=== PATIENT | female | born 1955 | race Caucasian/White ===

== ENCOUNTER 2018-12-13 15:50 | Outpatient (REF) | payer MEDICAID, SELFPAY ==
[2018-12-13 19:00] LABS: HCT 44.2 % (36.0-46.0); Mean Corp. HGB Concentration 33.9 g/dL (32.0-36.0); Mean Corpuscular Hemoglobin 31.4 pg (27.0-33.0); Mean Corpuscular Volume 92.5 fL (80-95); Mean Platelet Volume 11.5 fL (8.0-11.0); Platelet Count 237 x1000/uL (130-400); RBC 4.78 m/cumm (4.00-5.20); RBC Distribution Width 12.7 % (11.7-14.6); White Blood Cell Count 9.58 k/cumm (4.4-10.8)
[2018-12-13 19:02] LABS: Uric Acid 7.1 mg/dL (2.6-6.0)
== END 2018-12-13 16:10 ==
LOC: NCHCN 15:50
PROVIDERS: PCP Nurse Practitioner Family; Visit Provider Nurse Practitioner Family
DX: M10.072 Idiopathic gout, left ankle and foot (principal); M79.675 Pain in left toe(s)
CPT/HCPCS: 85027; 84550

== ENCOUNTER 2020-10-01 18:38 | Outpatient (REF) | payer MEDICARE, MEDICAID, SELFPAY ==
[2020-10-01 19:33] LABS: Anion Gap 6.9 mmol/L (3-11); BUN 21 mg/dL (7-18); CO2 31.1 mmol/L (21.0-32.0); CREATININE 0.8 mg/dL (0.55-1.02); Calcium 9.5 mg/dL (8.5-10.1); Calculated LDL 131 mg/dL (<100); Chloride 105 mmol/L (98-107); Cholesterol 231 mg/dL (<200); Glucose 110 mg/dL (74-106); HDL Cholesterol 32 mg/dL (40-60); Potassium 4.1 mmol/L (3.5-5.1); Sodium 143 mmol/L (136-145); Triglyceride 342 mg/dL (<150)
== END 2020-10-01 18:39 | disposition home or self-care (01) ==
LOC: NCHCN 18:38
PROVIDERS: PCP Nurse Practitioner Family; Visit Provider Nurse Practitioner Family
DX: R03.0 Elevated blood-pressure reading, without diagnosis of hypertension (principal); Z13.220 Encounter for screening for lipoid disorders
CPT/HCPCS: 80048; 80061

== ENCOUNTER 2020-12-28 08:23 | Day surgery (SDC) | payer MEDICARE, MEDICAID, SELFPAY ==
[2020-12-28 08:35] VITALS: BP 127/67; PULSE 82; RESP 16; TEMP 36.3; O2SAT 94
[2020-12-28] MEDS: Tropicam./Phenyleph. (1/2.5%) 5 ML BTL OS ×3 (09:03→09:14)
--- NOTE | 2020-12-28 09:13 | W.ANESPRE ---
General Info Date of Service Date Performed: 12/28/20 Height: 5 ft 6 in Weight: 84.2 kg Body Mass Index (BMI): 29.9 Surgical Procedure: Operation Date: 12/28/20 11:40 Proposed Procedures Side Surgeon p Cataract Extraction with IOL Implant Left Thad Galarza MD Meds Allergies and Home Medications Allergies Allergy/AdvReac Type Severity Reaction Status Date / Time Bleach (Sodium Hypochlorite) Allergy Severe Hives Unverified 12/28/20 08:56 latex Allergy Intermediate Skin Rash Unverified 12/28/20 08:56 Tide Detergent Allergy Severe Hives Uncoded 12/28/20 08:56 Home Medication Medication Instructions Recorded atorvastatin 10 mg PO HS 12/26/20 [id number] 1 tab PO BID 12/26/20 [Caltrate 600-D Plus Minerals] multivitamin with minerals 1 tab PO DAILY 12/26/20 naproxen 500 mg PO BID PRN 12/26/20 Current Visit Medications: Current Medications Generic Name Dose Route Start Last Admin Trade Name Freq PRN Reason Stop Dose Admin Acetaminophen 1,000 mg 12/28/20 06:00 Acetaminophen 500 Mg Tab PO Q4H PRN PRN Miscellaneous Medication 0 ml 12/28/20 06:00 Prednisolone 1%, Moxifloxacin 0.5%, Nepafenac 0.1% 5ml Btl OS DIRECTED KJ Miscellaneous Medication 0 ml 12/28/20 06:00 12/28/20 09:03 Tropicam./Phenyleph. (1/2.5%) 5 Ml Btl OS 1 drp DIRECTED KJ Administration Tetracaine HCl 0 ml 12/28/20 06:00 Tetracaine 0.5% 4 Ml Btl OS DIRECTED KJ PFSH Active Problems Active Problems: Problem Status Onset Code Nuclear sclerotic cataract of left eye H25.12 Posterior subcapsular age-related cataract of left eye H25.042 Medical History Medical History Bilateral cataracts Chronic fatigue High cholesterol Hip joint pain Surgical History Surgical History History of cholecystectomy History of partial hysterectomy Tobacco Smoking/Tobacco Use Status: Current every day Tobacco Type: cigarettes Alcohol Alcohol Intake: never Substance Use Substance use: Never Substance use type: does not use Vital Signs and Lab Results Vital Signs Most Recent Vital Signs in EMR: Most Recent Vital Signs Temp Pulse Resp BP Pulse Ox 36.3 C L 82 16 127/67 94 12/28/20 08:35 12/28/20 08:35 12/28/20 08:35 12/28/20 08:35 12/28/20 08:35 Lab Results Blood Type / Crossmatch: No Data to Display Complete Blood Count: No Data to Display Complete Metabolic Panel: No Data to Display Liver Function Panel: No Data to Display Coagulation Panel: No Data to Display Cardiac Panel: No Data to Display Arterial Blood Gas: No Data to Display Venous Blood Gas: No Data to Display Pancreas Panel: No Data to Display Thyroid Panel: No Data to Display Infectious Disease: No Data to Display Blood Cultures: No Data to Display Toxicology Panel: No Data to Display Anesthesia Assessment and Plan Anesthesia History Personal History: No History of Anesthesia Complications Family History: No Family History of Anesthesia Complications Exercise Tolerance Exercise Tolerance: Metabolic Equivalents>4 Pertinent Negatives Pertinent Negatives: No Symptoms of GERD, No Major Cardiovascular Symptoms or Complaints, No Major Pulmonary Symptoms or Complaints and No History of CVA/TIA Cardiac & Pulmonary Exam Cardiac Exam: Normal S1/S2 Heart Sounds Pulmonary Exam: Clear Bilateral Breath Sounds Airway Exam Known Difficult Airway: No Mallampati Class: 2 Mouth Opening: Normal (> 3cm) Thyromental Distance: Greater than 3 cm Neck Range of Motion: Full ROM Neck Circumference: Normal Teeth Condition: Normal Dentition ASA Classification ASA Score: ASA 2 Emergency Case?: No NPO Status NPO Status: NPO Clears >2 hours, Solids >8 hours Anesthesia Plan Resuscitation Status: Full Code Anesthesia Technique: MAC Anesthesia Airway Planned: Natural Airway Monitors Used: Standard Monitors
[2020-12-28 09:15] VITALS: BMI 29.9
--- NOTE | 2020-12-28 10:08 | W.ANESPOSTOP ---
Postoperative Evaluation Date, Time and Location Date Performed: 12/28/20 Time Performed: 10:08 Patient Location: Day Surgery Unit Vital Signs Most Recent Imported Vital Signs: Most Recent Vital Signs Temp Pulse Resp BP Pulse Ox 36.3 C L 82 16 127/67 94 12/28/20 08:35 12/28/20 08:35 12/28/20 08:35 12/28/20 08:35 12/28/20 08:35 Most Recent Manually Entered Vital Signs: Adult Blood Pressure: 188/68 Heart Rate: 51 Respirations: 16 Oxygen Saturation (%): 99 Temperature (C): 36.4 C Pain Score (0-10 Scale): 0 Assessment Mental Status: Awake (Alert & Oriented to Patient Baseline) Airway and Respiratory Function: Patent airway with normal (patient baseline) respiratory exam Cardiovascular Function: Hemodynamically Stable Hydration Status: Adequately Hydrated Nausea & Vomiting: No Nausea or Vomiting Pain: Pt. Denies Any Pain Peripheral Nerve Block: Patient did not receive a nerve block
[2020-12-28 10:09] VITALS: BP 188/68; PULSE 51; RESP 16; TEMPC 36.4; O2SAT 99
[2020-12-28] MEDS: Tetracaine 0.5% 4 ML BTL OS (10:17)
[2020-12-28] MEDS: Balanced Salt Soln.-PLUS 500 ML BAG (10:19)
[2020-12-28] MEDS: Duovisc Viscoelastic System EACH 1 EACH (10:20)
[2020-12-28] MEDS: Lidocaine 1% Pres-Free 5 ML VIAL (10:20)
[2020-12-28] MEDS: Lidocaine 2% Jelly 6 ML SYR (10:21)
[2020-12-28] MEDS: Povidone-Iodine Ophth 30 ML BTL (10:21)
[2020-12-28 10:46] VITALS: BP 144/84; PULSE 97; RESP 14; TEMP 36.3; O2SAT 96
--- NOTE | 2020-12-28 10:48 | W.PM.DSUDISC ---
Discharge Plan Disposition Patient Disposition: HOME Condition: Good Discharge Details Attending Provider: Thad Galarza Primary Care Provider: Pratima Miller Home Meds and New Rx's Prescriptions: No Action atorvastatin 10 mg tablet 10 mg PO HS RF: 0 multivitamin with minerals Tablet 1 tab PO DAILY RF: 0 naproxen 500 mg tablet 500 mg PO BID PRNRF: 0 Caltrate 600-D Plus Minerals 600 mg calcium- 800 unit-50 mg Tablet 1 tab PO BID RF: 0 Discharge Instructions Stand Alone Forms: Post-op Topical Cataract, Nargis Ganey ([facility]U) Discharge Orders Discharge Orders: Discharge Order (Routine); Ordered 12/28/20 Ordered By: Thad Galarza DS: Diagnosis Discharge Diagnosis (1) Nuclear sclerotic cataract of left eye: Status: Resolved (2) Posterior subcapsular age-related cataract of left eye: Status: Resolved
--- NOTE | 2020-12-28 10:49 | W.ANESPOSTOP ---
Postoperative Evaluation Date, Time and Location Date Performed: 12/28/20 Time Performed: 10:49 Patient Location: Day Surgery Unit Vital Signs Most Recent Imported Vital Signs: Most Recent Vital Signs Temp Pulse Resp BP Pulse Ox 36.3 C L 82 16 127/67 94 12/28/20 08:35 12/28/20 08:35 12/28/20 08:35 12/28/20 08:35 12/28/20 08:35 Most Recent Vital Signs Temp Pulse Resp BP Pulse Ox 36.3 C L 82 16 127/67 94 12/28/20 08:35 12/28/20 08:35 12/28/20 08:35 12/28/20 08:35 12/28/20 08:35 Most Recent Manually Entered Vital Signs: Adult Blood Pressure: 144/84 Heart Rate: 100 Respirations: 16 Oxygen Saturation (%): 99 Temperature (C): 36.4 C Pain Score (0-10 Scale): 0 Assessment Mental Status: Awake (Alert & Oriented to Patient Baseline) Airway and Respiratory Function: Patent airway with normal (patient baseline) respiratory exam Cardiovascular Function: Hemodynamically Stable Hydration Status: Adequately Hydrated Nausea & Vomiting: No Nausea or Vomiting Pain: Pt. Denies Any Pain Peripheral Nerve Block: Patient did not receive a nerve block
--- NOTE | 2020-12-28 10:49 | W.PM.OP ---
Date of service: 12/28/20 Time of Service: 10:50 Operative Note Operative Note DATE OF PROCEDURE: 12/28/20 PRE-OP DIAGNOSIS: Nuclear/posterior subcapsular cataract, left eye POST-OP DIAGNOSIS: same PROCEDURE: Cataract extraction using phacoemulsification with intraocular lens implant, left eye SURGEON: Thad Galarza ANESTHESIA TYPE: Local By Surgeon and MAC Refer to Anesthesia Record PATHOLOGY: none sent COMPLICATIONS: None Patient was transported to: same day Patient's condition: stable Implants: Sean and Sean / [employer] Tecnis [id number] Indications: Progressive decreased vision due to cataract, left eye, with poor red reflex Procedure Description: CATARACT SURGERY OPERATIVE REPORT PREOPERATIVE DIAGNOSIS: 1. Nuclear/posterior subcapsular cataract, left eye POSTOPERATIVE DIAGNOSIS: Same OPERATION: 1. Cataract extraction using phacoemulsification with posterior chamber intraocular lens implant, left eye. IOL: IOL [employer]/Model: Sean & Sean / FIORDALIZA Tecnis [id number] IOL Power: + 11.5 diopters IOL Serial Number: [id number] Optic Diameter: 6.0 mm Haptic/Overall Diameter: 13.0 mm PHACO INFO: Miguel Biodirectionurion Vision System with OZil and Active Fluidics Cumulative Dispersed Energy (CDE): 11.30 seconds SURGEON: Thad Galarza MD, CARLOS ANESTHESIA: Monitored A [facility] (MAC), with local sub-tenon's anesthetic infiltration COMPLICATIONS: None SPECIMENS: None INDICATIONS FOR PROCEDURE: The patient is a 65-year-old lady with history of high myopia who has developed a significant nuclear/posterior subcapsular cataract of the left eye. The option of cataract surgery was offered to the patient and she felt she was symptomatic enough that she wished to proceed. PROCEDURE: The correct surgical eye was identified and marked as the left eye and the pupil was dilated in the preoperative area using mydriatics and cycloplegics. The dilated pupil size was 7.0 mm. Oral sedation was administered in the form of an Imprimis MKO Melt (midazolam 3mg/ketamine 25mg/ondansetron 2mg). The patient was brought to the operating room where cardiopulmonary monitoring was instituted and surgical time-out was performed, confirming the correct operative eye and IOL power. Topical anesthesia was administered and ophthalmic povidone-iodine 5% was instilled into the conjunctival fornices. Lidocaine gel was applied to the cornea and the hosea-ocular area was prepped with Betadine 10% solution and draped in the usual sterile fashion for intraocular surgery, including an aperture drape. A Tegaderm transparent film dressing was cut in half and used to cover the lashes and lid margins. Care was taken to sequester the lashes and lid margins under the Tegaderm dressing. A lid speculum was placed between the lids of the operative eye and the Lexx-Eboni operating microscope was maneuvered into position. Rylan scissors were then used to make a conjunctival buttonhole approximately 6mm posterior to the limbus in the inferonasal quadrant. Blunt dissection was carried out to expose bare sclera, and a blunt-tipped sub-tenon?s anesthesia cannula was introduced and passed posteriorly along the globe where non-preserved plain lidocaine was injected into posterior sub-Tenon?s space. A sideport knife was used to make a paracentesis port superiorly/superiortemporally. Intraocular phenylephrine/lidocaine was injected int the anterior chamber.. Air was then injected into the anterior chamber, followed by Vision Blue, which was painted over the anterior capsule and then irrigated out using BSS. The anterior chamber was filled with viscoelastic. A 2.4mm keratome knife was used to create a half-thickness groove at the limbus and then to construct a three-plane near-clear corneal tunnel extending 2.0mm into clear cornea at the 3:00 position. A flap was raised on the anterior capsule and capsulorhexis forceps were used to complete a continuous curvilinear capsulorhexis of 5.5 mm. The anterior chamber was noted to be quite deep. Balanced salt solution was then used to perform cortical cleaving hydrodissection and nuclear hydrodelineation until the lens could be freely rotated within the capsular bag. The lens nucleus was then disassembled and removed within the capsular bag and iris plane using phacoemulsification. Residual cortical material was removed using the 45-degree angled silicone I/A tip with 0.3mm port. The posterior capsule was carefully polished to remove as much residual lens epithelial cells as safely possible. The capsular bag was then inflated and the anterior chamber deepened with viscoelastic. The lens implant described above was inserted into the capsular bag using the FIORDALIZA [place] Injector. A Kuglen hook was used to dial the IOL into position. Residual viscoelastic was then removed first from posterior to the IOL, then from the anterior chamber using the I/A handpiece. The lens implant was noted to center nicely within the capsular bag. The incisions were stromally hydrated, and the anterior chamber was reformed using BSS. Then 0.5cc of moxifloxacin 1.0mg/ml were injected into the capsular bag and anterior chamber. The incisions were checked with a Weck spear and found to be secure. Several drops of ophthalmic povidone-iodine 5% were then applied to the eye followed by two drops of Imprimis combination prednisolone/moxifloxacin/nepafenac solution. The drapes were removed and a clear plastic protective eye shield was placed over the eye. The patient was then returned to Same Day Surgery in stable condition.
[2020-12-28 10:50] VITALS: BP 144/84; PULSE 100; RESP 16; TEMPC 36.4; O2SAT 99
[2020-12-28 11:17] VITALS: BP 141/83; PULSE 97; RESP 16; TEMP 36.4; O2SAT 95
== END 2020-12-28 11:26 | disposition home or self-care (01) ==
PROVIDERS: PCP Nurse Practitioner Family; Visit Provider Ophthalmology
PROC: (CPT 66984; principal; 2020-12-28 11:30)
DX: H25.042 Posterior subcapsular polar age-related cataract, left eye (principal); E78.00 Pure hypercholesterolemia, unspecified
CPT/HCPCS: 66984; V2632

== ENCOUNTER 2021-01-11 09:34 | Day surgery (SDC) | payer MEDICARE, MEDICAID, SELFPAY ==
[2021-01-11 10:01] VITALS: BP 148/82; PULSE 91; RESP 16; TEMP 36.3; O2SAT 96
[2021-01-11] MEDS: Tropicam./Phenyleph. (1/2.5%) 5 ML BTL OD ×3 (10:07→10:23)
[2021-01-11 10:55] VITALS: BMI 29.9
--- NOTE | 2021-01-11 10:55 | ANES.PREOP_ITS ---
General Info Date of Service Date Performed: 01/11/21 Height: 5 ft 6 in Weight: 84.2 kg Body Mass Index (BMI): 29.9 Surgical Procedure: Operation Date: 01/11/21 12:40 Proposed Procedures Side Surgeon p Cataract Extraction with IOL Implant Right Thad Galarza MD Meds Allergies and Home Medications Allergies Allergy/AdvReac Type Severity Reaction Status Date / Time Bleach (Sodium Hypochlorite) Allergy Severe Hives Unverified 01/11/21 10:14 latex Allergy Intermediate Skin Rash Unverified 01/11/21 10:14 Tide Detergent Allergy Severe Hives Uncoded 01/11/21 10:14 Home Medication Medication Instructions Recorded atorvastatin 10 mg PO HS 12/26/20 [id number] 1 tab PO BID 12/26/20 [Caltrate 600-D Plus Minerals] multivitamin with minerals 1 tab PO DAILY 12/26/20 naproxen 500 mg PO BID PRN 12/26/20 Current Visit Medications: Current Medications Generic Name Dose Route Start Last Admin Trade Name Freq PRN Reason Stop Dose Admin Acetaminophen 1,000 mg 01/11/21 06:00 Acetaminophen 500 Mg Tab PO Q4H PRN PRN Miscellaneous Medication 0 ml 01/11/21 06:00 Prednisolone 1%, Moxifloxacin 0.5%, Nepafenac 0.1% 5ml Btl OD DIRECTED [facility] Miscellaneous Medication 0 ml 01/11/21 06:00 01/11/21 10:23 Tropicam./Phenyleph. (1/2.5%) 5 Ml Btl OD 1 drp DIRECTED KJ Administration Tetracaine HCl 0 ml 01/11/21 06:00 Tetracaine 0.5% 4 Ml Btl OD DIRECTED KJ PFSH Active Problems Active Problems: Problem Status Onset Code Nuclear sclerotic cataract of left eye H25.12 Posterior subcapsular age-related cataract of left eye H25.042 Medical History Medical History Bilateral cataracts Chronic fatigue High cholesterol Hip joint pain Surgical History Surgical History (Updated 01/11/21 @ 10:13 by Kimberly Alvarez) History of cholecystectomy History of partial hysterectomy Hx of cataract surgery Hx of tonsillectomy Tobacco Smoking/Tobacco Use Status: Current every day Tobacco Type: cigarettes Alcohol Alcohol Intake: never Substance Use Substance use: Never Substance use type: does not use Vital Signs and Lab Results Vital Signs Most Recent Vital Signs in EMR: Most Recent Vital Signs Temp Pulse Resp BP Pulse Ox 36.3 C L 91 H 16 148/82 H 96 01/11/21 10:01 01/11/21 10:01 01/11/21 10:01 01/11/21 10:01 01/11/21 10:01 Lab Results Blood Type / Crossmatch: No Data to Display Complete Blood Count: No Data to Display Complete Metabolic Panel: No Data to Display Liver Function Panel: No Data to Display Coagulation Panel: No Data to Display Cardiac Panel: No Data to Display Arterial Blood Gas: No Data to Display Venous Blood Gas: No Data to Display Pancreas Panel: No Data to Display Thyroid Panel: No Data to Display Infectious Disease: No Data to Display Blood Cultures: No Data to Display Toxicology Panel: No Data to Display Anesthesia Assessment and Plan Anesthesia History Personal History: No History of Anesthesia Complications Family History: No Family History of Anesthesia Complications Exercise Tolerance Exercise Tolerance: Metabolic Equivalents>4 Pertinent Negatives Pertinent Negatives: No Symptoms of GERD, No Major Cardiovascular Symptoms or Complaints, No Major Pulmonary Symptoms or Complaints and No History of CVA/TIA Cardiac & Pulmonary Exam Cardiac Exam: Normal S1/S2 Heart Sounds Pulmonary Exam: Clear Bilateral Breath Sounds Airway Exam Known Difficult Airway: No Mallampati Class: 2 Mouth Opening: Normal (> 3cm) Thyromental Distance: Greater than 3 cm Neck Range of Motion: Full ROM Neck Circumference: Normal Teeth Condition: Normal Dentition Airway Comments: Missing teeth ASA Classification ASA Score: ASA 2 Emergency Case?: No NPO Status NPO Status: NPO Clears >2 hours, Solids >8 hours Anesthesia Plan Resuscitation Status: Full Code Anesthesia Technique: MAC Anesthesia Airway Planned: Natural Airway Monitors Used: Standard Monitors
[2021-01-11] MEDS: Tetracaine 0.5% 4 ML BTL OD (11:14)
[2021-01-11] MEDS: Balanced Salt Soln.-PLUS 500 ML BAG (11:15)
[2021-01-11] MEDS: Duovisc Viscoelastic System EACH 1 EACH (11:15)
[2021-01-11] MEDS: Lidocaine 1% Pres-Free 5 ML VIAL (11:16)
[2021-01-11] MEDS: Lidocaine 2% Jelly 6 ML SYR (11:16)
[2021-01-11] MEDS: Povidone-Iodine Ophth 30 ML BTL (11:16)
[2021-01-11 11:37] VITALS: BP 135/75; PULSE 95; RESP 16; TEMP 36.4; O2SAT 92
--- NOTE | 2021-01-11 11:37 | W.PM.DSUDISC ---
Discharge Plan Disposition Patient Disposition: HOME Condition: Good Discharge Details Attending Provider: Thad Galarza Primary Care Provider: Pratima Miller Home Meds and New Rx's Prescriptions: No Action atorvastatin 10 mg tablet 10 mg PO HS RF: 0 multivitamin with minerals Tablet 1 tab PO DAILY RF: 0 naproxen 500 mg tablet 500 mg PO BID PRNRF: 0 Caltrate 600-D Plus Minerals 600 mg calcium- 800 unit-50 mg Tablet 1 tab PO BID RF: 0 Discharge Instructions Stand Alone Forms: Post-op Topical Cataract, Nargis Muir ([facility]) Discharge Orders Discharge Orders: Discharge Order (Routine); Ordered 01/11/21 Ordered By: Thad Galarza DS: Diagnosis Discharge Diagnosis (1) Nuclear sclerotic cataract of right eye: Status: Resolved
--- NOTE | 2021-01-11 11:37 | W.ANESPOSTOP ---
Postoperative Evaluation Date, Time and Location Date Performed: 01/11/21 Time Performed: 11:37 Patient Location: Day Surgery Unit Vital Signs Most Recent Imported Vital Signs: Most Recent Vital Signs Temp Pulse Resp BP Pulse Ox 36.3 C L 91 H 16 148/82 H 96 01/11/21 10:01 01/11/21 10:01/11/21 10:01/11/21 10:01 01/11/21 10:01 Most Recent Manually Entered Vital Signs: Adult Blood Pressure: 135/75 Heart Rate: 95 Respirations: 10 Oxygen Saturation (%): 99 Temperature (C): 36.4 C Pain Score (0-10 Scale): 0 Pain Score Most Recent Pain Score: Most Recent Pain Score Pain Level 0 01/11/21 10:01 Assessment Mental Status: Awake (Alert & Oriented to Patient Baseline) Airway and Respiratory Function: Patent airway with normal (patient baseline) respiratory exam Cardiovascular Function: Hemodynamically Stable Hydration Status: Adequately Hydrated Nausea & Vomiting: No Nausea or Vomiting Pain: Pt. Denies Any Pain Peripheral Nerve Block: Patient did not receive a nerve block
--- NOTE | 2021-01-11 11:38 | ROE_ITS ---
Date of service: 01/11/21 Time of Service: 11:38 Operative Note Operative Note DATE OF PROCEDURE: 11/26/20 PRE-OP DIAGNOSIS: Nuclear cataract, right eye, symptomatic POST-OP DIAGNOSIS: same PROCEDURE: Cataract extraction using phacoemulsification with intraocular lens implant, right eye SURGEON: Thad Galarza ANESTHESIA TYPE: Local By Surgeon and MAC Refer to Anesthesia Record ESTIMATED BLOOD LOSS: 0 PATHOLOGY: none sent COMPLICATIONS: None Patient was transported to: same day Patient's condition: stable Implants: Sean & Sean/FIORDALIZA Tecnis [id number] Indications: Progressive visual loss due to cataract, right eye Procedure Description: CATARACT SURGERY OPERATIVE REPORT PREOPERATIVE DIAGNOSIS: 1. Nuclear cataract, right eye, symptomatic POSTOPERATIVE DIAGNOSIS: Same OPERATION: 1. Cataract extraction using phacoemulsification with posterior chamber intraocular lens implant, right eye. IOL: IOL Baster Hand/Model: Sean & Sean / FIORDALIZA Tecnis [id number] IOL Power: + 12.5 diopters IOL Serial Number: [id number] Optic Diameter: 6.0mm Haptic/Overall Diameter: 13.0mm PHACO INFO: Miguel HowAboutWeurion Vision System with OZil and Active Fluidics Cumulative Dispersed Energy (CDE): 7.32 seconds SURGEON: Thad Galarza MD, CARLOS ANESTHESIA: Monitored An[facility] Care (MAC), with local sub-tenon's anesthetic infiltration COMPLICATIONS: None SPECIMENS: None INDICATIONS FOR PROCEDURE: The patient is a 65-year-old lady with history of diminished visual acuity in both eyes secondary to development of bilateral nuclear cataract. The option of cataract surgery was offered to the patient and she wished to proceed. She has already undergone cataract surgery in the left eye is doing well postoperatively. She now presents for surgery of the right eye. PROCEDURE: The correct surgical eye was identified and marked as the right eye and the pupil was dilated in the preoperative area using mydriatics and cycloplegics. The dilated pupil size was 7.0 mm. Oral sedation was administered in the form of an Imprimis MKO Melt (midazolam 3mg/ketamine 25mg/ondansetron 2mg). The patient was brought to the operating room where cardiopulmonary monitoring was instituted and surgical time-out was performed, confirming the co rrect operative eye and IOL power. Topical anesthesia was administered and ophthalmic povidone-iodine 5% was instilled into the conjunctival fornices. Lidocaine gel was applied to the cornea and the hosea-ocular area was prepped with Betadine 10% solution and draped in the usual sterile fashion for intraocular surgery, including an aperture drape. A Tegaderm transparent film dressing was cut in half and used to cover the lashes and lid margins. Care was taken to sequester the lashes and lid margins under the Tegaderm dressing. A lid speculum was placed between the lids of the operative eye and the Lexx-Eboni operating microscope was maneuvered into position. Rylan scissors were then used to make a conjunctival buttonhole approximately 6mm posterior to the limbus in the inferonasal quadrant. Blunt dissection was carried out to expose bare sclera, and a blunt-tipped sub-tenon?s anesthesia cannula was introduced and passed posteriorly along the globe where non- preserved plain lidocaine was injected into posterior sub-Tenon?s space. A sideport knife was used to make a paracentesis port inferotemporally. Intraocular phenylephrine/lidocaine was injected into the anterior chamber. The anterior chamber was filled with viscoelastic. A 2.4mm keratome knife was used to create a half-thickness groove at the limbus and then to construct a three- plane near-clear corneal tunnel extending 2.0mm into clear cornea superiortemporally. A flap was raised on the anterior capsule and capsulorhexis forceps were used to complete a continuous curvilinear capsulorhexis of 4.8 mm. The anterior chamber was noted to be quite deep. Balanced salt solution was then used to perform cortical cleaving hydrodissection and nuclear hydrodelineation until the lens could be freely rotated within the capsular bag. The lens nucleus was then disassembled and removed within the capsular bag and iris plane using phacoemulsification. Residual cortical material was removed using the I/A handpiece. The posterior capsule was carefully polished to remove as much residual lens epithelial cells as safely possible. The capsular bag was then inflated and the anterior chamber deepened with viscoelastic. The lens implant described above was inserted into the capsular bag using the FIORDALIZA [place] Injector. A Kuglen hook was used to dial the IOL into position. Residual viscoelastic was then removed first from posterior to the IOL, then from the anterior chamber using the I/A handpiece. The lens implant was noted to center nicely within the capsular bag. The incisions were stromally hydrated, and the anterior chamber was reformed using BSS. Then 0.5cc of moxifloxacin 1.0mg/ml were injected into the capsular bag and anterior chamber. The incisions were checked with a Weck spear and found to be secure. Several drops of ophthalmic povidone-iodine 5% were then applied to the eye followed by two drops of Imprimis combination prednisolone/moxifloxacin/nepafenac solution. The drapes were removed and a clear plastic protective eye shield was placed over the eye. The patient was then returned to Same Day Surgery in stable condition.
[2021-01-11 11:39] VITALS: BP 135/75; PULSE 95; RESP 10; TEMPC 36.4; O2SAT 99
[2021-01-11 11:55] VITALS: BP 140/84; PULSE 88; RESP 16; TEMP 36.4; O2SAT 94
== END 2021-01-11 12:05 | disposition home or self-care (01) ==
PROVIDERS: PCP Nurse Practitioner Family; Visit Provider Ophthalmology
PROC: (CPT 66984; principal; 2021-01-11 12:30)
DX: H25.11 Age-related nuclear cataract, right eye (principal)
CPT/HCPCS: 66984; V2632

== ENCOUNTER 2021-05-13 15:55 | Outpatient (REF) | payer MEDICARE, MEDICAID, SELFPAY | END 2021-05-13 15:56 | disposition home or self-care (01) | LOC: NCHCN 15:55 | PROVIDERS: PCP Nurse Practitioner Family; Visit Provider Nurse Practitioner Family | DX: L72.9 Follicular cyst of the skin and subcutaneous tissue, unspecified (principal) | CPT/HCPCS: 87070; 87205 ==

== ENCOUNTER 2021-11-20 18:39 | Outpatient (REF) | payer MEDICARE, MEDICAID, SELFPAY ==
[2021-11-20 19:01] LABS: Abs Immature Grans 0.03 10^3/uL (0.0-0.06); Absolute Basophil Count 0.07 10^3/uL (0.0-0.2); Absolute Lymphocyte Count 2.97 10^3/uL (1.2-3.4); Absolute Monocyte Count 0.94 10^3/uL (0.1-0.8); Absolute Neutrophil Count 5.35 10^3/uL (1.2-6.7); Basophils % 0.7; Eosinophils % 2.1; HCT 45.3 % (36.0-46.0); HGB 15.6 g/dL (11.2-15.7); Immature Grans % 0.3; Lymphocytes % 31.1; MCH 31.8 pg (27.0-33.0); MCHC 34.4 % (32.0-36.0); MCV 92 fL (80-95); MPV 11.2 fL (8.0-11.0); Monocytes % 9.8; Platelet Count 225 10^3/uL (130-400); RBC 4.91 10^6/uL (3.93-5.22); RDW 11.8 % (11.7-14.6); WBC 9.56 10^3/uL (4.4-10.8)
[2021-11-20 19:26] LABS: ALT 27 U/L (14-59); AST 23 U/L (15-37); Alkaline Phosphatase 88 U/L (46-116); Anion Gap 11.5 mmol/L (3-11); BUN 26 mg/dL (7-18); Bilirubin, Total 0.4 mg/dL (0.2-1.0); CO2 28.5 mmol/L (21.0-32.0); CREATININE 0.8 mg/dL (0.55-1.02); Calcium 9.3 mg/dL (8.5-10.1); Calculated LDL 90 mg/dL (<100); Chloride 103 mmol/L (98-107); Cholesterol 189 mg/dL (<200); Glucose 85 mg/dL (74-106); HDL Cholesterol 42 mg/dL (40-60); Potassium 4.1 mmol/L (3.5-5.1); Sodium 143 mmol/L (136-145); Total Protein 7.5 g/dL (6.4-8.2); Triglyceride 286 mg/dL (<150)
== END 2021-11-20 18:40 | disposition home or self-care (01) ==
LOC: NCHCN 18:39
PROVIDERS: PCP Nurse Practitioner Family; Visit Provider Nurse Practitioner Family
DX: R53.83 Other fatigue (principal); E78.5 Hyperlipidemia, unspecified
CPT/HCPCS: 80053; 80061; 85025

== ENCOUNTER 2022-01-27 15:39 | Outpatient (CLI) | payer MEDICARE, MEDICAID, SELFPAY ==
--- NOTE | 2022-01-27 14:45 | DI.RAD_ITS ---
Exam(s) XR HIP PELVIS ADULT BL EXAM: XR HIP PELVIS ADULT BL CLINICAL HISTORY: b/l hip pain. TECHNIQUE: 2D digital imaging was performed. COMPARISON: No exams were available for comparison FINDINGS: BONES: No acute fracture is present. No bony destructive lesion is seen. JOINTS: No dislocation present. [id number] bilateral hip joint space narrowing. Moderate aceta bular spurring. SOFT TISSUE: Normal. IMPRESSION: [id number] degenerative changes of both hips. DATA REPOSITORY: RADIATION DOSE DELIVERED:
== END 2022-01-27 15:40 | disposition home or self-care (01) ==
LOC: DIORS 15:39
PROVIDERS: PCP Internal Medicine; Referring Provider Internal Medicine; Visit Provider Physician Assistant
DX: M16.11 Unilateral primary osteoarthritis, right hip; M16.12 Unilateral primary osteoarthritis, left hip
CPT/HCPCS: 73521; 99203

== ENCOUNTER 2022-05-22 16:59 | Outpatient (REF) | payer MEDICARE, MEDICAID, SELFPAY ==
[2022-05-22 19:41] LABS: Anion Gap 6.4 mmol/L (3-11); BUN 28 mg/dL (7-18); CO2 28.6 mmol/L (21.0-32.0); Calcium 9.7 mg/dL (8.5-10.1); Chloride 101 mmol/L (98-107); Estimated GFR 61.36 (mL/min/1.73m2); Glucose 158 mg/dL (74-106); Potassium 4.2 mmol/L (3.5-5.1); Sodium 136 mmol/L (136-145)
== END 2022-05-22 17:00 | disposition home or self-care (01) ==
LOC: NCHCN 16:59
PROVIDERS: PCP Internal Medicine; Visit Provider Nurse Practitioner Family
DX: H35.033 Hypertensive retinopathy, bilateral (principal); R53.83 Other fatigue
CPT/HCPCS: 80048

== ENCOUNTER 2023-01-06 18:53 | Outpatient (REF) | payer MEDICARE, MEDICAID, SELFPAY ==
[2023-01-06 18:51] LABS: HCT 42.5 % (36.0-46.0); HGB 14.5 g/dL (11.2-15.7); MCH 31.3 pg (27.0-33.0); MCHC 34.1 % (32.0-36.0); MCV 92 fL (80-95); MPV 11.4 fL (8.0-11.0); Platelet Count 211 10^3/uL (130-400); RBC 4.64 10^6/uL (3.93-5.22); WBC 8.69 10^3/uL (4.4-10.8)
[2023-01-06 19:15] LABS: Anion Gap 10.7 mmol/L (3-11); BUN 20 mg/dL (7-18); CO2 25.3 mmol/L (21.0-32.0); CREATININE 0.8 mg/dL (0.55-1.02); Calcium 9.5 mg/dL (8.5-10.1); Chloride 103 mmol/L (98-107); Estimated GFR 80.21 (mL/min/1.73m2); Glucose 172 mg/dL (74-106); Sodium 139 mmol/L (136-145)
[2023-01-06 19:29] LABS: Hemoglobin A1C 5.8 % (<5.7)
== END 2023-01-06 18:54 | disposition home or self-care (01) ==
LOC: NCHCN 18:53
PROVIDERS: PCP Nurse Practitioner Family; Visit Provider Nurse Practitioner Family
DX: R53.83 Other fatigue (principal); R73.03 Prediabetes
CPT/HCPCS: 80048; 85027; 83036

== ENCOUNTER 2023-02-03 03:08 | Outpatient (CLI) | payer MEDICARE, MEDICAID, SELFPAY ==
--- NOTE | 2023-02-03 21:32 | PDOC.EEG_ITS ---
Neurology EEG EEG: [facility] Department of Neurology EEG REPORT Date of Recordin02/03/23 Interpreting Physician: Dr. Jes Landaverde PCP/Referring Provider: Ritu Garibay NP Reason for study: Kimberly Julio is a 68 year-old with recent spells of dizziness, nausea, and emesis with ?MELCHOR concerning for seizure. Current Medications: Home Medications Medication Instructions Recorded Confirmed Type atorvastatin 10 mg tablet 10 mg PO HS 12/26/20 01/27/22 History calcium 600 mg-D3 800 unit-mag11 1 tab PO BID 12/26/20 01/27/22 History 50 bk-pfla-ugtape-jessa-s.borat tablet (Caltrate 600-D Plus Minerals) multivitamin with minerals 1 tab PO DAILY 12/26/20 01/27/22 History naproxen 500 mg tablet 500 mg PO BID PRN 12/26/20 01/27/22 History meloxicam 15 mg tablet 15 mg PO DAILY #30 tabs 01/27/22 01/27/22 Rx lisinopril 5 mg tablet 5 mg PO DAILY for blood pressure 06/16/22 History rosuvastatin 5 mg tablet 5 mg PO DAILY 06/16/22 History METHODS: A 21 channel digitized electroencephalogram was performed in the [facility]. The 10/20 international system of electrode placement was used and bipolar and referential electrode montages were recorded. In addition to EEG the patient was monitored for EKG and lateral/vertical eye movements. Activation procedures of photic stimulation and hyperventilation were performed if applicable. Video was used during activation procedures and during events where applicable. The duration of the recording was 30 minutes. DESCRIPTION OF EEG: The patient was noted to be awake only during the recording. During maximal wakefulness a 9-Hz posterior background rhythm was present which was well- modulated, symmetrical, reactive to eye opening, and of moderate voltage. With eye opening the background activity changed to a low voltage mixture of alpha, beta, and occasional theta range frequencies. Faster frequencies were present in the bilateral anterior head regions. There was a normal anterior-posterior voltage gradient. No drowsiness or stage II sleep was recorded. Activating Procedures: Photic stimulation was performed which produced a symmetrical posterior driving response at various flash frequencies. Hyperventilation was performed with moderate effort and produced no physiological slowing of the background. EKG: EKG revealed normal sinus rhythm. INTERPRETATION: This EEG is normal during the awake state as well as during photic stimulation and hyperventilation. PRIOR EEG: none CLINICAL CORRELATION: No focal regions of cerebral dysfunction or epileptiform activity was present. No sleep was recorded during the study which reduces the sensitivity of the exam. If seizure remains a part of the differential, consider a repeat sleep- deprived EEG or overnight ambulatory EEG. Epilepsy remains a clinical diagnosis and a normal EEG does not rule out epilepsy. Clinical correlation is advised. Jes Landaverde MD
== END 2023-02-03 03:09 | disposition home or self-care (01) ==
LOC: RT 03:09
PROVIDERS: PCP Nurse Practitioner Family; Visit Provider Nurse Practitioner Family
DX: R42 Dizziness and giddiness (principal); R56.9 Unspecified convulsions
CPT/HCPCS: 95816

== ENCOUNTER → 2023-02-04 06:58 | Outpatient (BNVA) | payer MEDICARE, MEDICAID, SELFPAY | PROVIDERS: PCP Nurse Practitioner Family; Referring Provider Nurse Practitioner Family; Visit Provider Psychiatry & Neurology Neurology ==

== ENCOUNTER → 2023-03-17 00:11 | Outpatient (CLI) | payer MEDICARE, MEDICAID, SELFPAY ==
--- NOTE | 2023-03-17 | DI.MRI_ITS ---
Exam(s) MR BRAIN WO EXAM: MR BRAIN WO CLINICAL HISTORY: ATYPICAL SEIZURE, R56.9 TECHNIQUE: Multiplanar multisequence MRI of the brain was performed. COMPARISON: No exams were available for comparison FINDINGS: CEREBRAL PARENCHYMA: There is no evidence of intracranial hemorrhage, mass effect, or shift of midline structures. There are no extra-axial fluid collections. Ventricles are not enlarged or shifted. There is no significant focal signal abnormality in the cerebellar hemispheres nor within the staci, m idbrain, and thalami. There are multiple small sub cm foci of FLAIR bright periventricular signal abnormality consistent wi th chronic small vessel disease, not associated with hemorrhage, surrounding edema nor restricted dif fusion. There is also sub cortical signal abnormality in the right parietal lobe exhibiting cortical signal abnormality on FLAIR imaging but without restricted diffusion. SWI: No evidence of hemorrhage PITUITARY GLAND: No mass nor parasellar abnormality. No obvious abnormality in the cavernous sinuses. FLOW VOIDS: In the posterior circulation the left vertebral artery is dominant. Normal flow void not ed in the basilar artery. In the anterior circulation there is attenuated flow void within the intra cavernous right ICA. Inner flow void signal also noted in the ipsilateral right supra clinoid ICA. Flow void seen in both anterior cerebral arteries and both middle cerebral arteries. PARANASAL SINUSES: The visualized paranasal sinuses appear unremarkable. No obvious finding ORBITS: No obvious findings. IMPRESSION: Bilateral periventricular signal abnormality consistent with chronic small vessel disease. No obviou s acute ischemic event (no restricted diffusion). There is significant attenuation of flow void signal in the right internal carotid artery, specifical ly in the cavernous sinus level and ipsilateral supraclinoid ICA. Most probably related to atheroscl erotic disease. If clinically indicated further study with CT angiography of the head and neck or MR angiography can be performed. Left vertebral artery is dominant. DATA REPOSITORY:
== END ==
PROVIDERS: PCP Nurse Practitioner Family; Visit Provider Nurse Practitioner Family
DX: I67.82 Cerebral ischemia (principal)
CPT/HCPCS: 70551

== ENCOUNTER 2023-06-16 19:24 | Outpatient (REF) | payer OTHER, MEDICAID, SELFPAY ==
[2023-06-16 21:09] LABS: Uric Acid 6.1 mg/dL (2.6-6.0)
== END 2023-06-16 19:25 | disposition home or self-care (01) ==
LOC: NCHCN 19:24
PROVIDERS: PCP Nurse Practitioner Family; Visit Provider Nurse Practitioner Family
DX: M79.641 Pain in right hand (principal)
CPT/HCPCS: 84550

== ENCOUNTER 2024-01-12 16:31 | Outpatient (REF) | payer OTHER, MEDICAID, SELFPAY ==
--- OUTSIDE RECORDS SUMMARY | 2024-01-12 16:35 | XMS_ITS | Data Portability ---
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 Plan of Treatment Reminders Order Date Submit Date Provider Last Modified By Organization Details Last Modified Time Details Appointments Annual Wellness Exam 40 2023 01:50P M Not available Not available Not available Follow Up 30 2023 01:30P M Not available Not available Not available Lab uric acid, serum or plasma 2023 024 [email or web address] [facility] (Registration ), [address] [place] [address] [place], [address], 06/23/2023 07:09:53 Referral None recorded. Procedures None recorded. Surgeries None recorded. Imaging LDCT, chest, for lung cancer screening - 6 months follow up [email or web address] [facility], [address], [place], [address], 01/08/2024 09:14:57 Medication Orders cephalexi n 500 mg capsule 2023 024 [email or web address] [facility], [address], [place], [place], [id number], 08/10/2023 14:42:43 cephalexi n 500 mg capsule 2023 024 [facility], [address], [place], [id number], 12/21/2023 16:58:08 Patient TargetsNo targets recorded. Patient Instructions Encounter Date Encounter Id Patient Instructions Last Modified By Organization Details Last Modified Time 04/08/2023 [id number] I will call you the results of your CTA head and neck. Continue current medications. follow up with neurology as planned Follow up July Good luck with smoking cessation Not available 04/08/2023 16:08:52 06/16/2023 [id number] Ok to take loratadine, cetirizine for your runny nose, stay away from pseduophedrine and products that have some other spelling of sudafed because that will increase your blood pressure Elevate your hand as much as possible, if no improvement or feeling worse please let me know Start the antibiotic today Not available 06/16/2023 14:05:01 08/10/2023 [id number] Hold your rosuvastatin for a week to see if your fatigue improves. If it does, please let me know Try to get outside every single day, especially when it is gayla. Walk and you will feel better I ordered a low dose CT scan of your lungs you should be hearing from [facility] to have that scheduled Please work on smoking cessation., Lab work next week Let me know if you need a refill on your meloxicam Not available 08/10/2023 15:19:17 12/21/2023 [id number] Push fluids, isela e it easy. Please let me now if no improvement of feeling worse Not available 12/21/2023 16:56:51 Reason for Referral None Reported. Results Created Date Observation Date Name Description Value Unit Range Abnormal Flag Note LastModifiedBy Organization Detail LastModifiedTime 06/16/19 24 06/16/2023 URIC ACID uric acid 6.1 mg/dL 2.6-6. 0 high Not Available [facility] [address] , [place], [address] 06/16/2023 21:13:08 Result Notes None recorded. Problems Name Problem SNOMED Code Status Onset Date Resolution Date Notes Provider Name and Address Organization Details Recorded Time Nicotine dependen ce 33504598 [facility] 12:[facility] Screenin g for malignan t neoplasm of colon Completed 201705/25/2017 05/22/19 18 - Comments only - Pratima Miller DIRECTOR OF FUNDRAISING - Refuses colonosc opy but she agrees to do IFOB cards. Ordered. Problem Code: Z12.11; Problem Code Type: ICD-10; Not Available [facility] 3 05:17:16 Joint pain 48040681 Active 2017 [facility] 4 12:21:35 Otalgia of left ear 5851262612 Completed 201711/05/2017 10/16/19 18 - Comments only - Pratima Miller DIRECTOR OF FUNDRAISING - Suspect allergie s, no s/s of infectio n today, mild serous fluid. Treat with deconges tant, warm pack if needed. F/U if not improvin g. The patient is in good understa nding and agreemen t with the plan of care. Problem Code: H92.02; Problem Code Type: ICD-10; Not Available [facility] 3 05:17:16 Primary gout 77865295 Completed 201801/12/2024 left great toe Gail Ciluzmak [facility] 4 14:42:40 Pain in right hip joint 25082413907 9102 Active 2019 [facility] 4 12:23:44 Screenin g for malignan t neoplasm of breast Completed 201906/02/2019 [facility] 4 12:24:56 Localize d edema 817434167 Active 2019 Pedal edema [facility] 4 12:22:05 Hyperlip idemia screenin g Completed 202010/08/2020 Problem Code: Z13.220; Problem Code Type: ICD-10; Not Available [facility] 3 05:17:16 Screenin g for malignan t neoplasm of breast Completed 202010/09/2020 [facility] 4 12:24:56 Cataract 870453834 Active 2020 [facility] 4 12:19:36 Pain of left hip joint 55873435013 9100 Active 2020 [facility] 4 12:23:56 Fatigue 19316962 Active 2020 chronic [facility] 4 12:20:35 Follicul ar cysts of skin and subcutan eous tissue 568698257 Active 2021 [facility] 4 12:21:08 [place] - lesion 712967088 Active 2021 Callus, right foot [facility] 4 12:19:52 Hyperlip idemia 85801231 Active 2021 [facility] 4 12:21:25 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 82379046953 9101 Active 2021 Hyperten sive retinopa thy, bilatera l -- per eye exam 12/11/2021 [facility] 4 12:19:21 Atherosc lerosis of coronary artery without angina pectoris 95179329424 4103 Active 2021 CAD, triple vessel -- mild per CT 2 [facility] 4 12:18:24 Disorder of skin and/or subcutan eous tissue 22509296 Active 2022 Skin lesion [facility] 4 12:20:10 Hypergly cemia 19617602 Completed 202202/04/2023 Problem Code: R73.9; Problem Code Type: ICD-10; Not Available [facility] 3 05:17:18 Nausea and vomiting 83035085 Completed 202201/12/2024 Gail Carrillo null, [facility] 4 14:38:29 Dyspnea 980439420 Active 2022 Rosalie Pete null, [facility] 4 12:20:23 Seizure 94207780 Active 2022 Atypical Rosalie [facility] 4 12:25:16 Prediabe grisel 512103687 Active 2022 [facility] 4 12:24:13 Elevated blood-pr essure reading without diagnosi s of hyperten ami 848265039 Completed 201412/17/2022 Problem Code: R03.0; Problem Code Type: ICD-10; Not Available [facility] 3 05:17:19 Body mass index 30+ - obesity 208913139 Completed 201712/17/2022 Problem Code: Z68.32; Problem Code Type: ICD-10; Not Available [facility] 3 05:17:19 Tobacco dependen ce syndrome 88797222 Completed 201402/04/2023 Problem Code: 305.1; Problem Code Type: ICD-9; Not Available [facility] 3 05:17:19 Counseli ng Completed 202012/17/2022 Problem Code: Z71.89; Problem Code Type: ICD-10; Not Available [facility] 3 05:17:19 Hyperten sive disorder 31782149 Completed 201402/04/2023 Not Available [facility] 3 05:17:19 Lung field abnormal 046176183 Active 2022 Lung nodule -- right lower lobe [facility] 4 12:22:35 Atherosc lerosis of artery 611141936 Active 2022 [facility] 4 12:17:44 Pain in right hand 40317334126 9109 Active 2023 [facility] 4 12:23:22 Gout 15508478 Active 2023 [facility] 4 12:21:13 Cough 04068841 Active 2023 LUKASZ LOZOYA [address], [place], [address] , [facility] 4 16:55:44 Problem Notes None recorded. Procedures Surgical History Date Name Laterality Status Provider Name and Address Organization Details Recorded Time 3 Most Recent Mammogram completed Andres Arriaza RN [facility] 01/08/2024 09:21:35 Imaging Results None recorded. Procedure Notes None recorded. Medical Equipment None Reported. Allergies Allergen ID Allergen Name Allergen Category Reaction Reaction Severity Criticality Documentation Date Start Date Code Code System Note Provider Name and Address Organization Details Recorded Time 43968 sodium hypochlor ite environme nt,medica tion rash Not available high 03/20/20232020 9881 RxNorm [facility] 4 12:25:36 11321 latex environme nt,medica tion rash moderate Not available 03/20/20232013 12876 91 RxNorm [facility] 4 12:25:50 Medications Name Sig Start Date Stop Date Status Note LastModified by Organization Details LastModified Time atorvastati n 10 mg tablet TAKE 1 TABLET BY MOUTH AT BEDTIME FOR CHOLESTER OL (STOP FISH OIL SUPPLEMEN T) 12/12 completed Not Available Not Available Not Available meloxicam 15 mg tablet TAKE 1 TABLET BY MOUTH ONCE DAILY NEEDED FOR PAIN active Not Available Not Available No t Available prednisone 20 mg tablet Take two tablets daily x two days, then one tablet daily x 3 more days with food 08/09 completed Not Available Not Available Not Available ascorbic acid (vitamin C) ER 1,000 mg tablet,exte nded release Take 1 tablet by mouth daily 2013 active Not Available Not Available Not Avai lable cephalexin 500 mg capsule Take 1 capsule by mouth three times a day 2023 active Not Available Not Available Not Avai lable indomethaci n 25 mg capsule take 2 tablets in the evening for gout (time change due to drowsines s) 06/02 completed Not Available Not Available Not Available lisinopril 5 mg tablet Take by oral route for 90 days. active Not Available Not Available No t Available naproxen 500 mg tablet Take 1 tablet by mouth twice daily as needed for pain 2017 active Not Available Not Available Not Avai lable rosuvastati n 5 mg tablet TAKE 1 TABLET BY MOUTH ONCE DAILY 04/08 completed Not Available Not Available Not Available rosuvastati n 10 mg tablet Take 1 tablet by mouth once daily 09/12 completed Not Available Not Available Not Available multivitami n 1tab qd 2013 active Not Available Not Available Not Avai lable Calcitrate 315 mg calcium-6.2 5 mcg (250 unit) tablet 1 tab 2017 active Not Available Not Available Not Avai lable Caltrate 600-D Plus Minerals 600 mg calcium-800 unit-50 mg tablet Take 1 tablet by mouth two times daily 2017 active Not Available Not Available Not Avai lable Vitals Date Recorded Body height Oxygen saturation Oxygen saturation in Arterial blood by Pulse oximetry Heart rate Respiratory rate Systolic blood pressure Diastolic blood pressure Provider Name and Address Organization Details Last Updated DateTime 3 167.487 6 cm 94 % 94 % 94 /min 18 /min 130 mm[Hg] 78 mm[Hg] OLIVER JOSHI RN [place] [facility] 3 15:33:18 Date Recorded Body height Body mass index (BMI) Body weight Body temperature Respiratory rate Oxygen saturation Oxygen saturation in Arterial blood by Pulse oximetry Heart rate Systolic blood pressure Diastolic blood pressure Provider Name and Address Organization Details Last Updated DateTime 4 167.49 cm 30.3 kg/m2 47997.5 7 g 97.6 [degF] 18 /min 96 % 96 % 92 /min 120 mm[Hg] 70 mm[Hg] DAVID SINGER LPN [facility] 4 13:41:22 Date Recorded Body height Body mass index (BMI) Body weight Oxygen saturation Oxygen saturation in Arterial blood by Pulse oximetry Heart rate Systolic blood pressure Diastolic blood pressure Provider Name and Address Organization Details Last Updated DateTime 4 167.49 cm 30.5 kg/m2 96827.5 2 g 94 % 94 % 102 /min 112 mm[Hg] 72 mm[Hg] FARNAZ JOHNSON MA [facility] 4 14:43:42 Date Recorded Body height Body mass index (BMI) Body weight Body temperature Oxygen saturation Oxygen saturation in Arterial blood by Pulse oximetry Heart rate Systolic blood pressure Diastolic blood pressure Provider Name and Address Organization Details Last Updated DateTime 4 167.49 cm 30.1 kg/m2 21572.8 6 g 97.2 [degF] 98 % 98 % 96 /min 126 mm[Hg] 64 mm[Hg] Andres Arriaza RN [facility] 4 16:39:55 Date Recorded Body height Body mass index (BMI) Body weight Oxygen saturation Oxygen saturation in Arterial blood by Pulse oximetry Heart rate Systolic blood pressure Diastolic blood pressure Provider Name and Address Organization Details Last Updated DateTime 4 166.37 cm 30.3 kg/m2 11754.9 3 g 98 % 98 % 88 /min 122 mm[Hg] 64 mm[Hg] Andres Arriaza RN [facility] 4 14:01:21 Social History Question Answer Notes LastModified by Organizat ion Details LastModified Time Tobacco Smoking Status Current Every Day Smoker DAVID SINGER LPN null, [facility]. 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 12/21/2023 Information not available 12/21/2023 How Much Tobacco Do You Smoke? 0.5 PPD Information not available 06/16/2023 Has Tobacco Cessation Counseling Been Provided? Yes Information not available 06/16/2023 On What Date Was Tobacco Cessation Counseling Provided? 12/21/2023 Information not available 12/21/2023 Sex: Female Functional Status None recorded. Mental Status None recorded. Family History Nothing Reported Notes:*Problem: Mother: Dece ased 84 yrs: leukemia Father: at 86 yrs had a pacemaker Brother who at age 59-ETOH complications Brother 64yrs A+W Family History of: Hypertension: No Hyperlipidemia: No Coronary heart disease: Yes Diabetes mellitus: No Breast cancer: No Colorectal cancer: No Prostate cancer: No Alcoholism: Yes Mental illness: Yes depression: mother Other: Yes asthma. mother had ulcerative colitis and arthritis Medical History No medical history recorded. Gynecological History Statement/Question Response Most Recent Mammogram 01/21/2023 Obstetrics History GPAL:G 0 P 0 0 0 0 Immunizations Vaccine Type Date Status Provider Name and Address Organization Details Recorded Time Tdap 05/21/2017 completed Not Available [facility] 06:09:27 COVID-19, mRNA, LNP-S, PF, 100 mcg/0.5mL dose or 50 mcg/0.25mL dose 09/09/2020 completed Not Available [facility] 03/20/2023 06:09:27 COVID-19, mRNA, LNP-S, PF, 100 mcg/0.5mL dose or 50 mcg/0.25mL dose 10/04/2021 completed Not Available [facility] 03/20/2023 06:09:28 COVID-19, mRNA, LNP-S, PF, 100 mcg/0.5mL dose or 50 mcg/0.25mL dose 10/11/2020 completed Not Available [facility] 03/20/2023 06:09:28 COVID-19, mRNA, LNP-S, PF, 100 mcg/0.5mL dose or 50 mcg/0.25mL dose 04/18/2021 completed Not Available [facility] 03/20/2023 06:09:28 Past Encounters Encounter ID Performer Location Encounter Start Date Encounter Closed Date Diagnosis/Indication Diagnosis SNOMED-CT Code Diagnosis ICD10 Code [id number] [address] [address] 04/08/2023 15:25:42 04/08/2023 16:15:25 Prediabetes 478969538 R73.03 Seizure 53102098 R56.9 Hyperlipidemia 81663101 E78.5 Essential hypertension 31798018 I10 [id number] [address] [address] 06/16/2023 13:30:12 06/16/2023 14:09:19 Pain in right hand 7429167491 76738 M79.[id number] [address] 08/10/2023 14:38:36 08/10/2023 15:23:34 Lung field abnormal 318386577 R91.8 Prediabetes 018698827 R7 3.03 Bilateral hypertension with disorder of retinas 8034548981 49435 H35.033 Hyperlipidemia 29734505 E78.5 Fatigue 95920826 R53.83 Nicotine dependence 5629 4008 F17.200 Seizure 61523144 R56.[id number] [address] 12/21/2023 16:29:53 12/24/2023 12:37:26 Cough 58806706 R05.[id number] [address] 01/12/2024 13:51:22 01/12/2024 15:00:44 Prediabetes 577416960 R73.03 Adult heal th examination 086576208 Z00.00 Lung field abnormal 2747 83125 R91.8 Screening for malignant neoplasm of colon 397710191 Z12.11 Screening for malignant neoplasm of breast 446911670 Z12.39 Hyperlipidemia 53877905 E78.5 Nicotine dependence 5629 4008 F17.200 Gout 66392174 M10.9 Active or passive immunization 016741706 Z23 Imaging re sult abnormal 771031871 R93.89 Health Concerns Section Related Observation LastModified by Organization Detai ls LastModified Time None Recorded Concern Status LastModified by Organization Details LastModified Time None Recorded Advance Directives Directive None Recorded Payers Encounter Date Sequence Insurance Name Policy Number Policy Hartman Covered Member ID Hartman Member ID Guarantor Name 04/08/2023 1 [place]: [employer] Kimberly Julio [id number] Kimberly Julio 04/08/2023 2 [facility] (MEDICAID) Kimberly Cervantes Mealy [id number] Kimberly Pineday 06/16/2023 2 [facility] (MEDICAID) Kimberly Pineday [id number] Kimberly Pineday 06/16/2023 1 [employer] (MEDICARE REPLACEMENT/A DVANTAGE - PPO) Kimberly Pineday [id number] Kimberlylasha Pineday 08/10/2023 2 [facility] (MEDICAID) Kimberly Pineday [id number] Kimberly Pineday 08/10/2023 1 [employer] (MEDICARE REPLACEMENT/A DVANTAGE - PPO) Kimberly Pineday [id number] Kimberly Pineday 12/21/2023 2 [facility] (MEDICAID) Kimberly Pineday [id number] Kimberly Pineday 12/21/2023 1 [employer] (MEDICARE REPLACEMENT/A DVANTAGE - PPO) iKmberly Pineday [id number] Kimberly Julio Notes Date Note Type Note Provider Name and Address Organization Details Recorded Time 04/08/2023 text/html HPI Notes: Seizu re like activity - has not returned. She has been sure she eats regularly and feels that is helping. MRI showed atherosclerosis of the right ICA, had to cancel her CTA due to the weather, has not yet rescheduled HTN - continues on lisinopril hyperlipidemia - just started taking ten mg of rosuvastatin and tolerating ok but does feel tired smoking abou tten cigarettes daily EVA COLE, LUKASZ [address], [place], [address], [place] - [facility]. 04/08/2023 17:23:42 06/16/2023 text/html HPI Notes: cc ri ght wrist pain - right wrist pain started suddenly in the middle of the night on Thursday night. Has improved since onset. If resting not so bad if activity such as brushing teeth increases pain. 3-4 days prior to onset her right 4 and 5th fingers started hurting alot, that resolve. She tried aspercreme and ice and heat. No trauma Has been drinking plenty of water, does have history of gout about ten years ago No fever or chills, feels tired, not sick Has been taking her meloxicam, did take some aspirin as well yesterday LUKASZ LOZOYA [address], [place], [address], [facility] 06/16/2023 15:43:37 08/10/2023 text/html HPI Notes: cc fatigue, CAD hip pain Fatigue - feels tired all the time, doesn't get outside every day but hopes to get out more now that the weather has changed. Wants a pill to make her happy and give her energy Hypertensive retinopathy - continues on low dose lisinopril CAD - continues on rosuvastatin. Seizure - no recurrence, never saw neuro, has not had any erturn of symptoms Hip pain - never tried prednisone. Does continue in a lot of pain. Hasn't been taking prednisone or meloxicam, has been ES tylenol without relief. Has rx for meloxicam at pharmacy hand pain resolved Smoker - isn't sure how much she is smoking, doesn't keep track Pre DM - a1c 5.[address] [place], [address], [facility]. 08/10/2023 17:43:02 12/21/2023 text/html HPI Notes: cc co ugh Cough - has been coughing for a couple of weeks, she is waking her bed partner at night, she happened to have some left over cephalexin that she was given for hand infection and started taking that one daily four days ago. has had no fever or chills, does not feel sick, has been sneezing. No headache, no rhinitis, no sinus pain or pressure, cough has been productive yellow phlegm Continues to smoke EVA COLE, LUKASZ [address], [place], [address], [facility] - [facility]. 12/21/2023 17:02:20 OBGyn Episode No OBEpisode recorded.
--- OUTSIDE RECORDS SUMMARY | 2024-01-12 16:35 | XMS_ITS | Continuity of Care Document ---
Author Organization [facility], [facility] Address [address] [place] [address] Care Team Providers Care Javascript Programmer Name Role Phone JASPER KEYS Dentist EVA COLE Primary Care Provider [phone] Assessment No assessment recorded. Plan of Treatment Reminders Order Date Submit Date Provider Last Modified By Organization Details Last Modified Time Details Appointments Annual Wellness Exam 40 2023 01:50P M Not available Not available Not available Follow Up 30 2023 01:30P M Not available Not available Not available Lab None recorded. Referral None recorded. Procedures None recorded. Surgeries None recorded. Imaging None recorded. Medication Orders cephalexi n 500 mg capsule 2023 024 [facility], [facility] [address], [place], [place], [id number], 12/21/2023 16:58:08 Patient TargetsNo targets recorded. Patient Instructions Encounter Date Encounter Id Patient Instructions Last Modified By Organization Details Last Modified Time 12/21/2023 [id number] Push fluids, isela e it easy. Please let me now if no improvement of feeling worse Not available 12/21/2023 16:56:51 Reason for Referral None Reported. Problems Name Problem SNOMED Code Status Onset Date Resolution Date Notes Provider Name and Address Organization Details Recorded Time Nicotine dependen ce 65841079 Active 2014 Rosalie huynh [facility] 12:23:09 Screenin g for malignan t neoplasm of colon Completed 201705/25/2017 05/22/19 18 - Comments only - Pratima Lyndseyángel STRAPPER - Refuses colonosc opy but she agrees to do IFOB cards. Ordered. Problem Code: Z12.11; Problem Code Type: ICD-10; Not Available [facility] 3 05:17:16 Joint pain 46613474 Active 2017 [facility] 4 12:21:35 Otalgia of left ear 5741140073 Completed 201711/05/2017 10/16/19 18 - Comments only - Pratima Miller STRAPPER - Suspect allergie s, no s/s of infectio n today, mild serous fluid. Treat with deconges tant, warm pack if needed. F/U if not improvin g. The patient is in good understa nding and agreemen t with the plan of care. Problem Code: H92.02; Problem Code Type: ICD-10; Not Available [facility] 3 05:17:16 Primary gout 13188884 Completed 201801/12/2024 left great toe Gail Ciluzmak [facility] 4 14:42:40 Pain in right hip joint 10898823163 9102 Active 2019 [facility] 4 12:23:44 Screenin g for malignan t neoplasm of breast Completed 201906/02/2019 [facility] 4 12:24:56 Localize d edema 607512155 Active 2019 Pedal edema [facility] 4 12:22:05 Hyperlip idemia screenin g Completed 202010/08/2020 Problem Code: Z13.220; Problem Code Type: ICD-10; Not Available [facility] 3 05:17:16 Screenin g for malignan t neoplasm of breast Completed 202010/09/2020 [facility] 4 12:24:56 Cataract 160436532 Active 2020 [facility] 4 12:19:36 Pain of left hip joint 55538907171 9100 Active 2020 [facility] 4 12:23:56 Fatigue 30268203 Active 2020 chronic [facility] 4 12:20:35 Follicul ar cysts of skin and subcutan eous tissue 883988828 Active 2021 [facility] 4 12:21:08 Lima - lesion 816757250 Active 2021 Callus, right foot [facility] 4 12:19:52 Hyperlip idemia 91390092 Active 2021 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 4 12:19:21 Atherosc lerosis of coronary artery without angina pectoris 57121168855 4103 Active 2021 CAD, triple vessel -- mild per CT 2 [facility] 4 12:18:24 Disorder of skin and/or subcutan eous tissue 20932485 Active 2022 Skin lesion [facility] 4 12:20:10 Hypergly cemia 49794538 Completed 202202/04/2023 Problem Code: R73.9; Problem Code Type: ICD-10; Not Available [facility] 3 05:17:18 Nausea and vomiting 78360188 Completed 202201/12/2024 Gail Carrillo [facility] 4 14:38:29 Dyspnea 242442615 Active 2022 Rosalie Freeman [facility] 4 12:20:23 Seizure 61605791 Active 2022 [facility] 4 12:25:16 Prediabe grisel 664004848 Active 2022 [facility] 4 12:24:13 Elevated blood-pr essure reading without diagnosi s of hyperten ami 354732135 Completed 201412/17/2022 Problem Code: R03.0; Problem Code Type: ICD-10; Not Available [facility] 3 05:17:19 Body mass index 30+ - obesity 858594356 Completed 201712/17/2022 Problem Code: Z68.32; Problem Code Type: ICD-10; Not Available [facility] 3 05:17:19 Tobacco dependen ce syndrome 96578882 Completed 201402/04/2023 Problem Code: 305.1; Problem Code Type: ICD-9; Not Available [facility] 3 05:17:19 Counseli ng Completed 202012/17/2022 Problem Code: Z71.89; Problem Code Type: ICD-10; Not Available [facility] 3 05:17:19 Hyperten sive disorder 17740511 Completed 201402/04/2023 Not Available [facility] 3 05:17:19 Lung field abnormal 881127571 Active 2022 Lung nodule -- right lower lobe Rosalie Freeman [facility] 4 12:22:35 Atherosc lerosis of artery 417421722 [facility] 12:17:44 Pain in right hand 92413272497 9109 Active 2023 Rosaliekaylin Freeman [facility] 4 12:23:22 Gout 33165336 Active 2023 Rosalie Freeman [facility] 4 12:21:13 Cough 97834250 Active 2023 LUKASZ LOZOYA [address], [place], [address] , [facility] 4 16:55:44 Problem Notes None recorded. Procedures Surgical History Date Name Laterality Status Provider Name and Address Organization Details Recorded Time 3 Most Recent Mammogram completed Andres Arriaza RN [facility] 01/08/2024 09:21:35 Imaging Results None recorded. Procedure Notes None recorded. Medical Equipment None Reported. Allergies Allergen ID Allergen Name Allergen Category Reaction Reaction Severity Criticality Documentation Date Start Date Code Code System Note Provider Name and Address Organization Details Recorded Time 71693 sodium hypochlor ite environme nt,medica tion rash Not available high 03/20/20232020 9881 RxNorm [facility] 4 12:25:36 93562 latex environme nt,medica tion rash moderate Not available 03/20/20232013 66617 91 [facility]Norm [facility] 4 12:25:50 Medications Name Sig Start Date [...] Avai lable Vitals Date Recorded Body height Body mass index (BMI) Body weight Body temperature Oxygen saturation Oxygen saturation in Arterial blood by Pulse oximetry Heart rate Systolic blood pressure Diastolic blood pressure Provider Name and Address Organization Details Last Updated DateTime 4 167.49 cm 30.1 kg/m2 82745.8 6 g 97.2 [degF] 98 % 98 % 96 /min 126 mm[Hg] 64 mm[Hg] Andres Arriaza RN [facility] 4 16:39:55 Social History Question Answer Notes LastModified by Organizat ion Details LastModified Time Tobacco Smoking Status Current Every Day Smoker DAVID SINGER LPN null, [facility] 06/16/2023 13:42:34 What Is Your Occupation? Retired [...] Recorded Time Tdap 05/21/2017 completed Not Available [facility] 06:09:27 COVID-19, mRNA, LNP-S, PF, 100 mcg/0.5mL dose or 50 mcg/0.25mL dose 09/09/2020 completed Not Available [facility] 03/20/2023 06:09:27 COVID-19, mRNA, LNP-S, PF, 100 mcg/0.5mL dose or 50 mcg/0.25mL dose 10/04/2021 completed Not Available [facility] 03/20/2023 06:09:28 COVID-19, mRNA, LNP-S, PF, 100 mcg/0.5mL dose or 50 mcg/0.25mL dose 10/11/2020 completed Not Available [facility] 03/20/2023 06:09:28 COVID-19, mRNA, LNP-S, PF, 100 mcg/0.5mL dose or 50 mcg/0.25mL dose 04/18/2021 completed Not Available [facility] 03/20/2023 06:09:28 Past Encounters Encounter ID Performer Location Encounter Start Date Encounter Closed Date Diagnosis/Indication Diagnosis SNOMED-CT Code Diagnosis ICD10 Code [id number] LUKASZ LOZOYA [facility] [address] [place] [address] 12/21/2023 16:29:53 12/24/2023 12:37:26 Cough 49120678 R05.9 Health Concerns Section Related Observation LastModified by Organization Detai ls LastModified Time None Recorded Concern Status LastModified by Organization Details LastModified Time None Recorded Payers Encounter Date Sequence Insurance Name Policy Number Policy Hartman Covered Member ID Hartman Member ID Guarantor Name 12/21/2023 2 [facility] (MEDICAID) Kimberly Julio [id number] Kimberly Julio 12/21/2023 1 [employer] (MEDICARE REPLACEMENT/A DVANTAGE - PPO) Kimberly Julio [id number] Kimberly Julio Notes Date Note Type Note Provider Name and Address Organization Details Recorded Time 12/21/2023 text/html HPI Notes: cc cough Cough - has been coughing for a [...] been productive yellow phlegm Continues to smoke LUKASZ LOZOYA [address], [place], [address], [facility]. 12/21/2023 17:02:20 OBGyn Episode No OBEpisode recorded.
[2024-01-12 20:05] LABS: ALT 36 U/L (14-59); AST 23 U/L (15-37); Albumin 3.7 g/dL (3.4-5.0); Alkaline Phosphatase 94 U/L (46-116); Anion Gap 10.7 mmol/L (3-11); BUN 19 mg/dL (7-18); Bilirubin, Total 0.37 mg/dL (0.2-1.0); CO2 27.3 mmol/L (21.0-32.0); CREATININE 0.8 mg/dL (0.55-1.02); Calcium 9.6 mg/dL (8.5-10.1); Calculated LDL 167 mg/dL (<100); Chloride 103 mmol/L (98-107); Cholesterol 263 mg/dL (<200); Estimated GFR 79.71 (mL/min/1.73m2); Glucose 90 mg/dL (74-106); HDL Cholesterol 40 mg/dL (40-60); Potassium 4.3 mmol/L (3.5-5.1); Sodium 141 mmol/L (136-145); Total Protein 7.6 g/dL (6.4-8.2); Triglyceride 282 mg/dL (<150)
== END 2024-01-12 16:32 | disposition home or self-care (01) ==
LOC: NCHCN 16:31
PROVIDERS: PCP Nurse Practitioner Family; Visit Provider Nurse Practitioner Family
DX: E78.5 Hyperlipidemia, unspecified (principal)
CPT/HCPCS: 80053; 80061